=== PATIENT | male | born 1975 | race Caucasian/White ===

== ENCOUNTER 2017-07-23 20:59 | Emergency (ER) | payer MEDICAID ==
[~2017-07-23] VITALS: Ht 175.3 cm; Wt 80.0 kg
[2017-07-23 21:02] VITALS: Ht 175.3 cm; Wt 80.0 kg
[2017-07-23] MEDS ORDERED: IBUPROFEN 600 MG TAB PO ONE (22:30)
--- NOTE | 2017-07-23 22:59 | RADRPT ---
PROCEDURE: XR Chest. CLINICAL INDICATION: Cough TECHNIQUE: Single frontal view of the chest was obtained COMPARISON: None FINDINGS: The heart and mediastinum are within normal limits. There is a possible retrocardiac infiltrate. There is no pleural effusion or pneumothorax. RPTAT: AA IMPRESSION: Possible mild retrocardiac infiltrate versus atelectasis. .Cezar Cruz MD, MD Date Time Electronically viewed and signed by .Cezar Cruz MD, on 07/23/2017 22:59 .S/
[2017-07-23] MEDS ORDERED: AZIT250T94 PO (23:05)
[2017-07-23] MEDS ORDERED: IBUP-1542 PO (23:06)
--- NOTE | 2017-07-23 23:10 | ERD ---
ER Documentation Chief Complaint Chief Complaint flu like symptoms= headaches, body aches, nasal congestion, cough HPI A 41-year-old male presents to the ER with cough, fever, body aches, headache, fatigue for the last 8 days. Patient has been taking Tylenol for his fever however fever always returns. Cough is severe and constant, it is productive. He denies any shortness of breath. There are no sick contacts at home. ROS \12 point review of systems was done, all negative except per HPI. Medications Home Meds Active Scripts Ibuprofen* (Motrin*) 600 Mg Tab, 600 MG PO Q6, #30 TAB Prov:ELOISA LEONARD Miller 07/23/17 Azithromycin* (Zithromax*) 250 Mg Tablet, 250 MG PO .ZPACK DIRECTED, #6 TAB TAKE 500 MG (2 TABS) THE FIRST DAY THEN 250 MG (1 TAB) DAYS 2-5 Prov:ELOISA LEONARD Miller 07/23/17 Allergies Allergies: Coded Allergies: No Known Allergy (Unverified , 07/23/17) PMhx/Soc Medical and Surgical Hx: pt denies Medical Hx, pt denies Surgical Hx Hx Alcohol Use: No Hx Substance Use: No Hx Tobacco Use: No Smoking Status: Never smoker Physical Exam Vitals Vital Signs Date Time Temp Pulse Resp B/P Pulse Ox O2 Delivery O2 Flow Rate FiO2 07/23/17 21:02 99.7 99 20 142/83 97 Physical Exam GENERAL: The patient is well-developed, well-nourished, in no acute distress. NECK: Cervical spine is non tender with no step off. Supple, no nuchal rigidity HEENT: Atraumatic. Pupils equal, round and reactive to light. Extraocular muscles are grossly intact. Conjunctivae pink, no discharge. Bilateral tympanic membranes are clear with no evidence of erythema, effusion or dulling of the light reflex. Tonsilar erythema with no exudates or uvular deviation. Clear rhinorrhea. RESPIRATORY: Clear to auscultation bilaterally. There are no rales, wheezes or rhonchi. HEART: Regular rate and rhythm. No murmurs, clicks, rubs or gallops. EXTREMITIES: No clubbing or cyanosis. Full range of motion. Grossly neurovascularly intact. NEUROLOGIC: Alert and oriented. Cranial nerves II through XII are intact. SKIN: There is no rash. The skin is warm and dry. Results 24 hrs Current Medications Medications (Trade) Dose Ordered Sig/Gregg Route PRN Reason Start Time Stop Time Status Last Admin Dose Admin Ibuprofen (Motrin) 600 mg ONCE ONCE PO 07/23/17 22:30 07/23/17 22:31 DC 07/23/17 22:39 Procedures/MDM Differential diagnosis includes but is not limited to; Viral URI, allergic rhinitis, bronchitis, pertussis,pneumonia. Patient symptoms have been worsening and he has been febrile for 8 days now, on x-ray there is a possibility of pneumonia he will be treated for pneumonia with azithromycin. It is not hypoxic or in any respiratory distress. Plan was discussed with patient they understand and agree. Patient needs to follow up with PCP in 1-2 days or return to ER sooner if symptoms worsen. Departure Diagnosis: Primary Impression: Pneumonia Condition: Stable Patient Instructions: Pneumonia (Adult) Additional Instructions: Llame al doctor MAANA y jorge santo NARCISO PARA DENTRO DE 1-2 BANKS.Dgale a la secretaria que nosotros le instruimos hacer esta narciso.Avise o llame si jin condicin se empeora antes de la narciso. Regresa aqui si peor o no mejor. ELOISA LEONARD Jul 23, 2017 23:10
[2017-07-23 23:24] VITALS: BP 142/83; PULSE 78; RESP 20; TEMP 99.7
== END 2017-07-23 23:30 | disposition home or self-care (01) ==
LOC: FTE 20:59
DX: J18.9 Pneumonia, unspecified organism (principal)
CPT/HCPCS: 71010; 87400; Z7502; Z7610